=== PATIENT | male | born 1950 | race American Indian/Alaskan Native ===

== ENCOUNTER 2021-10-09 14:44 | Emergency (ER) | payer OTHER, MEDICARE ==
[~2021-10-09] VITALS: Ht 170.2 cm; Wt 121.8 kg
[~2021-10-09 14:44] MED LIST: ALLO300T2 PO; ALOG25TA PO; ASCO-134 PO; ATOR20TA66 PO; DICL20GE PO; FLO0.4C PO; HYDR-3965 PO; IPRA3AMP31 IH; LOSA25TA41 PO; PANT40TA54 PO
[2021-10-09 16:18] LABS: BASOPHILS # (AUTO) 0.1 X10'3 (0-0.2); BASOPHILS % (AUTO) 1.3 % (0-1); EOSINOPHILS # (AUTO) 0.4 X10'3 (0-0.9); EOSINOPHILS % (AUTO) 7.3 % (0-6); HEMOGLOBIN 14.3 g/dl (14.0-17.9); LYMPHOCYTES # (AUTO) 1.2 X10'3 (1.1-4.8); LYMPHOCYTES % (AUTO) 20.9 % (21-51); MEAN CORPUSCULAR HEMOGLOBIN 30.6 PG (27.0-31.0); MEAN CORPUSCULAR HGB CONC 32.4 g/dL (33.0-36.5); MEAN CORPUSCULAR VOLUME 94.5 FL (78-98); MEAN PLATELET VOLUME 9.4 FL (7.4-10.4); MONOCYTES # (AUTO) 0.5 X10'3 (0-0.9); MONOCYTES % (AUTO) 8.8 % (2-12); NEUTROPHILS # (AUTO) 3.6 X10'3 (1.8-7.7); NEUTROPHILS % (AUTO) 61.7 % (42-75); PLATELET COUNT 242 X10'3 (140-440); RED BLOOD COUNT 4.65 X10'6 (4.70-6.10); RED CELL DISTRIBUTION WIDTH 15.8 % (11.5-14.5); WHITE BLOOD COUNT 5.8 X10'3 (4.5-11.0)
[2021-10-09 16:31] LABS: ALANINE AMINOTRANSFERASE 26 U/L (12-78); ALBUMIN 3.5 G/DL (3.4-5.0); ALBUMIN/GLOBULIN RATIO 0.9 (1.1-1.5); ALKALINE PHOSPHATASE 76 IU/L (46-116); ANION GAP 9 (8-16); ASPARTATE AMINO TRANSFERASE 20 U/L (10-37); BILIRUBIN,TOTAL 0.8 MG/DL (0.1-1.0); BLOOD UREA NITROGEN 15 MG/DL (7-18); BUN/CREATININE RATIO 10.6 (5.4-32.0); CHLORIDE 104 MMOL/L (99-107); CREATININE 1.42 MG/DL (0.60-1.10); GLUCOSE 115 MG/DL (70-104); LIPASE 106 U/L (73-393); SODIUM 143 MMOL/L (135-145); TOTAL CARBON DIOXIDE 30.2 MMOL/L (24-32); TOTAL PROTEIN 7.5 G/DL (6.4-8.2); eGFR 49 ML/MIN
[2021-10-09 16:41] LABS: CALCIUM 9.3 MG/DL (8.5-10.1)
[2021-10-09 20:01] LABS: CLARITY,URINE CLEAR (Clear); COLOR,URINE YELLOW (Yellow); GLUCOSE, URINE NEGATIVE (Neg); KETONES,URINE NEGATIVE (Neg); LEUKOCYTE ESTERASE ,URINE NEGATIVE (Neg); NITRITES, URINE NEGATIVE (Neg); OCCULT BLOOD,URINE NEGATIVE (Neg); PH,URINE 5.5 (4.8-8.0); PROTEIN,URINE NEGATIVE (Neg)
[2021-10-09 20:19] LABS: UA COLLECTION TYPE VOIDED
[2021-10-09] MEDS ORDERED: iohexol 300mg/ml 100ml inj. ONE (20:56)
--- NOTE | 2021-10-09 20:58 | NUR ---
PATIENT TO CT
[2021-10-09 23:44] VITALS: BP 138/73
== END 2021-10-09 23:54 | disposition home or self-care (01) ==
LOC: ER 14:45
DX: R10.10 Upper abdominal pain, unspecified (principal); R10.33 Periumbilical pain; R11.2 Nausea with vomiting, unspecified; K59.00 Constipation, unspecified; E78.00 Pure hypercholesterolemia, unspecified; I10 Essential (primary) hypertension; E11.9 Type 2 diabetes mellitus without complications; G89.29 Other chronic pain; Z91.040 Latex allergy status; Z79.899 Other long term (current) drug therapy
CPT/HCPCS: 36415; 74177; 80053; 81003; 83690; 85025; 93005; 99285; Q9967

== ENCOUNTER 2025-05-06 23:45 | Inpatient (IN) | payer OTHER, MEDICARE ==
[~2025-05-06] VITALS: Ht 167.6 cm; Wt 90.0 kg
[~2025-05-06 23:45] MED LIST changes: -FLO0.4C PO; +TAMS-55 PO
--- NOTE | 2025-05-07 01:02 | RADIOLOGY REPORT ---
CHEST RADIOGRAPH Indication: possible sepsis Technique: Single frontal view of the chest was obtained COMPARISON: None FINDINGS: Lines and Tubes: None. Left anterior chest wall cardiac pacing device. Lungs: Clear Pleura: No effusion. No pneumothorax. Cardiomediastinal contours: Unremarkable Bones: Unremarkable IMPRESSION: 1. No radiographic evidence of acute cardiopulmonary abnormality.
[2025-05-07 01:37] LABS: MEAN PLATELET VOLUME 7.7 FL (7.4-10.4); RED CELL DISTRIBUTION WIDTH 18.3 % (11.5-14.5)
[2025-05-07 01:44] LABS: CREATININE 1.09 MG/DL (0.60-1.10); TOTAL CARBON DIOXIDE 33.3 MMOL/L (24-32); eCRCL 52 ML/MIN; eGFR 66 ML/MIN
--- NOTE | 2025-05-07 02:49 | Physician Documentation ---
History of Present Illness ~ Chief Complaint: Confused Stated Complaint: ALOC A ALS Time Seen by MD: 02:48 Primary Medical Doctor: MAGDA Mode of Arrival: EMS HPI Patient presents to the emergency room from home with confusion. History is limited secondary to patient's clinical condition Medication Reconciliation Allergies: Coded Allergies: kiwi (Verified Allergy, Unknown, 05/07/25) latex (Unverified Allergy, Unknown, 10/09/21) milk (Verified Allergy, Unknown, 05/07/25) Uncoded Allergies: PENICILLIN (Allergy, Mild, RASH, 08/31/21) AVOCADOS (Allergy, Unknown, 05/07/25) WALNUTS (Allergy, Unknown, 05/07/25) Scheduled Allopurinol (Allopurinol), 1.5 TAB PO DAILY, (Reported) Alogliptin Benzoate (Nesina), 1 TAB PO DAILY, (Reported) Ascorbic Acid (Ascorbic Acid), 1 TAB PO DAILY, (Reported) Atorvastatin Calcium (Atorvastatin Calcium), 1 TAB PO DAILY, (Reported) Diclofenac Sodium (Voltaren Arthritis Pain), 2 GM PO QID, (Reported) Diltiazem HCl (Diltiazem 24Hr Cd), 1 CAP PO DAILY, (Reported) Irbesartan* (Avapro*), 1 TAB PO DAILY, (Reported) Levothyroxine Sodium* (Synthroid*), 1 TAB PO DAILY, (Reported) Losartan Potassium (Losartan Potassium), 1 TAB PO DAILY, (Reported) Meloxicam (Meloxicam), 1 TAB PO DAILY, (Reported) Omeprazole (Prilosec), 1 CAP PO DAILY, (Reported) Pantoprazole Sodium (Pantoprazole Sodium), 1 TAB PO DAILY, (Reported) Polyethylene Glycol 3350* (Miralax*), 1 PKT PO DAILY, (Reported) Tamsulosin Hcl* (Flomax*), 1 CAP PO DAILY, (Reported) Scheduled PRN Hydrocodone Bit/Acetaminophen 5/325 MG ([place] 5/325 MG), 1 TABLET PO BID PRN for pain, (Reported) Ipratropium/Albuterol Sulfate (Duoneb 2.5-0.5 Mg/3 Ml Soln), 3 ML IH QID PRN for SOB or wheezing, (Reported) albuterol inhaler (Pro-Air Inhaler), 2 PUFFS INH Q4HPRN PRN for wheezing, (Reported) Miscellaneous Medications Cholecalciferol (Vitamin D3) (D3-5000), (Reported) Empagliflozin (Jardiance), (Reported) Guaifenesin (Guaifenesin), 400 MG PO, (Reported) Lisinopril (Lisinopril), (Reported) Metformin Hcl (Metformin Hcl Er), (Reported) Past Medical History Past Medical History: High Cholesterol, Hypertension, Diabetes, Chronic Back Pain Alcohol Use: None Drug Use: none Lives with: Family Lives In: Home Review of Systems ROS Review of systems limited secondary to patient's clinical condition Physical Exam Vital Signs: Temperature: 100.4, Source: Oral, Heart Rate: 76, Respiratory Rate: 17, BP: 123/73, Pulse Oximetry: 95, Weight: 90.000 Physical Exam General: Patient is sleeping, arousable to painful stimuli but just goes back to sleep Head: Normocephalic and atraumatic. Eyes: Conjunctival normal. EOMI. PERRL. ENT: Mucous membranes moist. Neck: Supple, trachea is midline. Chest: Clear to auscultation bilaterally without rales, rhonchi, or wheezes. There is no accessory muscle use or retractions. Cardiac: RRR without murmurs, gallops, or rubs. Abd: Soft, nondistended, nontender, with normoactive bowel sounds. No guarding, rebound, or rigidity. Extremities: Normal strength. Normal range of motion. No deformities or edema. Progress Progress Note Upon re-evaluation patient is much more spry, evening smiling Results/Orders Results/Orders Orders - YONNY STRAUSS MD Culture Blood (05/07/25 00:39) Chest,Single View (05/07/25 00:53) Monitor (05/07/25 00:39) Oxygen (05/07/25 00:39) Saline Lock (05/07/25 00:39) Straight Cath For Urine Sample (05/07/25 00:39) Covid19 Binax Poc Result Entry (05/07/25 02:52) Ct Head (05/07/25 02:53) Ct Abdomen Pelvis (05/07/25 02:53) Page Hospitalist (05/07/25 04:59) Fill Out Med Reconciliation (05/07/25 04:59) Completed Orders - YONNY STRAUSS MD Cbc/Diff (05/07/25 00:39) Chest,Single View (05/07/25 00:53) Procalcitonin (05/07/25 00:39) BMP (05/07/25 00:39) Lacticsepsis (05/07/25 00:39) Normal Saline 1000ml (0.9% Sodium Chlori (05/07/25 02:55) Ceftriaxone 2gm/D5w 50ml Bag (Rocephin 2 (05/07/25 02:55) Ct Head (05/07/25 02:53) Ct Abdomen Pelvis (05/07/25 02:53) Iohexol 300mg/Ml 100ml Inj. (Omnipaque-3 (05/07/25 03:02) CMP (05/07/25 04:25) Ammonia (05/07/25 04:25) Ua W/Microscopic, Cult If Ind (05/07/25 04:22) Medications Received in ER Medications (Trade) Dose Ordered Sig/Sarbjit Route PRN Reason Start Time Stop Time Status Last Admin Dose Admin Sodium Chloride 1,000 ml @ 1,000 mls/hr ONCE ONCE IV 05/07/25 02:55 05/07/25 03:54 DC 05/07/25 05:15 1,000 MLS/HR Ceftriaxone Sodium/Dextrose 50 ml @ 100 mls/hr ONCE ONCE IV 05/07/25 02:55 05/07/25 03:24 DC 05/07/25 05:15 100 MLS/HR Vital Signs 05/06/25 05/06/25 05/07/25 05/07/25 23:51 23:58 01:12 01:58 Temp 100.4 100.4 Pulse 78 74 75 76 Resp 16 18 19 17 B/P (MAP) 132/72 132/72 (92) 149/72 (97) 123/73 (90) Pulse Ox 100 96 100 95 05/07/25 05/07/25 05/07/25 04:25 04:30 04:33 Temp 97.8 Pulse 57 58 Resp 19 19 B/P (MAP) 142/74 (96) 142/74 (96) Pulse Ox 95 92 O2 Flow Rate 2.0 Laboratory Tests Test 05/07/25 01:04 05/07/25 04:22 05/07/25 04:54 05/07/25 04:57 White Blood Count 7.0 Red Blood Count 3.53 L Hemoglobin 10.1 L Hematocrit 30.9 L Mean Corpuscular Volume 87.7 Mean Corpuscular Hemoglobin 28.8 Mean Corpuscular Hemoglobin Concent 32.8 L Red Cell Distribution Width 18.3 H Platelet Count 364 Mean Platelet Volume 7.7 Neutrophils (%) (Auto) 73.4 Lymphocytes (%) (Auto) 13.8 L Monocytes (%) (Auto) 9.4 Eosinophils (%) (Auto) 2.8 Basophils (%) (Auto) 0.6 Neutrophils # (Auto) 5.1 Lymphocytes # (Auto) 1.0 L Monocytes # (Auto) 0.7 Eosinophils # (Auto) 0.2 Basophils # (Auto) 0.0 CBC Comment Sodium Level 138 136 Potassium Level 3.8 4.0 Chloride Level 102 100 Carbon Dioxide Level 33.3 H 34.1 H Anion Gap 3 L 2 L Blood Urea Nitrogen 17 17 Creatinine 1.09 1.16 H Estimated GFR/1.73 m2 66 61 BUN/Creatinine Ratio 15.6 14.7 Glucose Level 107 H 105 H Lactic Acid Level 0.6 Calcium Level 8.8 9.5 Albumin 2.0 L 2.2 L Procalcitonin < 0.05 Chemistry Comments Urine Specimen Description Cln catch midstream Urine Color Yellow Urine Clarity Clear Urine pH 5.5 Urine Specific [place] 1.020 Urine Protein Negative Urine Glucose (UA) >=1000 H Urine Ketones Trace H Urine Occult Blood Negative Urine Nitrite Negative Urine Bilirubin Small Urine Urobilinogen 0.2 Urine Leukocyte Esterase Negative Urine RBC 0-2 Urine WBC 0-4 Urine Squamous Epithelial Cells None seen Urine Bacteria Few Urine Hyaline Casts 0-3 Urine Culture Indicated Not ind Volume Urine Centrifuged 10 ml Urine Comment SARS-CoV-2 Antigen (Rapid) Negative Total Bilirubin 0.6 Aspartate Amino Transf (AST/SGOT) 18 Alanine Aminotransferase (ALT/SGPT) 9 L Alkaline Phosphatase 101 Ammonia < 10 L Total Protein 7.1 Globulin 4.9 H Albumin/Globulin Ratio 0.4 L Microbiology Date/Time Source Procedure Growth Status 05/07/25 01:14 Blood Hand Right Blood Culture - Preliminary NEGATIVE (LESS THAN 24 HOURS) Resulted Medical Decision Making Additional information obtaine: old records Findings Patient presents to the emergency room altered with fever. Differentials include but are not limited to urinary tract infection, metabolic encephalopathy, medication reaction, meningitis, stroke therefore emergent labs and imaging indicated. Labs reassuring for no elevation of white blood cell count or procalcitonin. Urinalysis is negative. Labs reassuring. Unknown cause for patient's altered mental status. We will admit for further investigation. Differential Dx:Considerations: Include: DKA Departure Admitted to Inpatient Unit: yes, to hospitalist Impression: Primary Impression: Acute confusion Additional Impression: Fever Condition: Guarded Referrals: NO PRIMARY CARE PROVIDER (PCP) Signature Scribe Signature: No scribe Attestation: The note accurately reflects work and decisions made by me.Yonny Strauss MD 05/07/25 06:02 YONNY STRAUSS MD May 07, 2025 02:49
[2025-05-07] MEDS ORDERED: iohexol 300mg/ml 100ml inj. ONE (03:02)
--- NOTE | 2025-05-07 04:12 | RADIOLOGY REPORT ---
EXAM: CT CT HEAD INDICATION: ams TECHNIQUE: CT of the head without intravenous contrast. Coronal and sagittal reformatted images are submitted. Radiation Dose : 1. Head: CT Dose: CTDI volume is 33.8 mGy. Dose-length product is 755 mGy*cm The dose indicators for CT are the volume Computed Tomography (CT) Dose Index (CTDIvol) and the Dose Length Product (DLP), and are measured in units of mGy and mGy-cm, respectively. These indicators are not patient dose, but values generated from the CT scanner acquisition factors. The report includes radiation exposure data for exposures received during this examination. All CT scans at this medical facility are performed using dose modulation techniques as appropriate to a performed exam including the following: Automated exposure control was utilized; adjustment of the MA and/or KV according to patient size; and use of iterative reconstruction technique. COMPARISON: None FINDINGS: There is no evidence of acute intracranial hemorrhage, extra-axial collection, mass effect, midline shift, herniation or hydrocephalus. The ventricles, sulci and cisterns are age appropriate. The guo-white differentiation is intact. The mastoid air cells are clear. There is mucosal thickening in the left maxillary sinus. No depressed calvarial fracture. The surrounding soft tissues are unremarkable. IMPRESSION: 1. No evidence of acute intracranial abnormality.
--- NOTE | 2025-05-07 04:21 | RADIOLOGY REPORT ---
Exam: CT CT ABDOMEN PELVIS W/ IV CONTRAST History: ams Comparison Study: CT ABDOMEN PELVIS on DOS: 10/09/21 Contrast: Type of contrast: Omnipaque 300 Contrast injected: 100 mL Contrast wasted: 0 TECHNIQUE: CT of the abdomen pelvis was performed with intravenous contrast. Coronal and sagittal reformatted images are submitted. Radiation Dose Information: CT Dose: CTDI volume is 27.8 mGy. Dose-length product is 1626.4 mGy*cm FINDINGS: Lung Bases: No acute or significant lung base finding. Normal heart size. No pleural or pericardial effusion. Liver: The liver is normal in size. No focal lesions. Normal hepatic vascular enhancement. Gallbladder and Biliary Tree: Gallbladder is unremarkable. No biliary ductal dilatation. Spleen: There is a 1.6 cm low-density lesion in the spleen compatible with a cyst. No splenomegaly. Pancreas: The pancreas is normal in appearance without focal lesions or abnormal enhancement. Adrenal Glands: Unremarkable Kidneys: Kidneys demonstrate normal symmetric enhancement. There is an 8 mm nonobstructive left renal calculus. There are bilateral renal cysts. Bladder: Unremarkable Bowel: The stomach is grossly normal in appearance. The small bowel is normal in caliber. Scattered stool throughout the colon. The appendix is not visualized; however, no secondary findings of acute appendicitis identified. Peritoneum: No pneumoperitoneum. No ascites. Lymphadenopathy: No mesenteric, retroperitoneal or periportal lymphadenopathy. Abdominal Wall and Mesentery: Unremarkable. Vasculature: Atherosclerotic calcifications are present in the distal abdominal aorta and the main branches. Mild stenosis of the superior mesenteric artery proximally due to atherosclerotic calcification. There is noncalcified plaque at the right iliac bifurcation. Right common iliac artery aneurysm is present measuring 2.3 cm. Left common iliac artery aneurysm present measuring 1.8 cm. Diffuse calcification noted throughout the bilateral internal and external iliac arteries. Pelvic Organs: Unremarkable Musculoskeletal: No aggressive focal bony lesions, acute fractures or dislocation. There is an old right 9th and 10th rib fractures. Multilevel lumbar spondylosis. There are postsurgical changes in the right femur. Multilevel lumbar spondylosis. Soft tissues: Unremarkable. IMPRESSION: 1. No acute intra-abdominal or intrapelvic process. 2. Nonobstructive left renal calculus measuring 8 mm. 3. Bilateral common iliac artery aneurysms measuring up to 2.3 cm on the right and 1.8 cm on the left. 4. Constipation.
[2025-05-07 04:40] LABS: LEUKOCYTE ESTERASE ,URINE NEGATIVE (Neg); NITRITES, URINE NEGATIVE (Neg); OCCULT BLOOD,URINE NEGATIVE (Neg)
[2025-05-07 04:41] LABS: UA COLLECTION TYPE CLN CATCH MIDSTREAM
[2025-05-07 04:51] LABS: HYALINE CASTS 0-3 /LPF (NEGATIVE); SQUAMOUS EPITHELIAL CELL,UR NONE SEEN /LPF (FEW)
[2025-05-07] MEDS: normal saline 1000ml 1,000 ML IV ONE (05:15)
[2025-05-07] MEDS: CefTRIAXone 2gm/D5W 50ml BAG 50 ML IV ONE (05:15)
[2025-05-07 05:26] LABS: CREATININE 1.16 MG/DL (0.60-1.10); TOTAL CARBON DIOXIDE 34.1 MMOL/L (24-32); eCRCL 49 ML/MIN; eGFR 61 ML/MIN
[2025-05-07] MEDS ORDERED: METF-504 (05:28)
[2025-05-07] MEDS ORDERED: LISI30TA4 (05:28)
[2025-05-07] MEDS ORDERED: EMPA10TA (05:29)
[2025-05-07] MEDS ORDERED: MELO-102 PO (05:51)
[2025-05-07] MEDS ORDERED: CHOL125C7 (05:51)
[2025-05-07] MEDS ORDERED: POLY17PO10 PO (05:51)
[2025-05-07] MEDS ORDERED: SYN0.088T PO (05:51)
[2025-05-07] MEDS ORDERED: DILT-36 PO (05:51)
[2025-05-07] MEDS ORDERED: ALBU8HFA INH (05:51)
[2025-05-07] MEDS ORDERED: GUAI400T92 PO (05:51)
[2025-05-07] MEDS ORDERED: OMEP40CA21 PO (05:51)
[2025-05-07] MEDS ORDERED: IRBE150T51 PO (05:51)
--- NOTE | 2025-05-07 05:56 | HISTORY AND PHYSICAL-Residence ---
History & Physical Providers to CC Resident Creating Document: ESVIN MONTANEZ, RES ~ History of Present Illness Primary Medical Doctor: MAGDA Reason for Admit\Complaint: Encephalopathy History of Present Illness This is a 74-year-old male with a history of type 2 diabetes mellitus, hypertension, hypothyroidism, on 2 L of oxygen at home, possible stroke was brought to the ER by the EMS for increased confusion. Patient is awake, alert, oriented to self, place but not to time. On asking why he was in the hospital, he replied he came for blood transfusion. Patient is able to answer few questions regarding his medical history. He denied any fever, chest pain, palpitations, shortness of breadth, burning sensation in the urine, nausea, vomiting, diarrhea. He denies any headache, changes in the vision. Reports no change in his medications. He lives with his sister and production artist. I tried contacting the production artist but she did not reply to the call. Allergies: Coded Allergies: kiwi (Verified Allergy, Unknown, 05/07/25) latex (Unverified Allergy, Unknown, 10/09/21) milk (Verified Allergy, Unknown, 05/07/25) Uncoded Allergies: PENICILLIN (Allergy, Mild, RASH, 08/31/21) AVOCADOS (Allergy, Unknown, 05/07/25) WALNUTS (Allergy, Unknown, 05/07/25) Home Medications Home Medications Active Reported Jardiance (Empagliflozin) 10 Mg Tablet Metformin Hcl Er (Metformin Hcl) 500 Mg Tab.er.24 Lisinopril 30 Mg Tablet Flomax* (Tamsulosin HCl) 0.4 Mg Cap.sr.24h 1 Cap PO DAILY Pantoprazole Sodium 40 Mg Tablet.dr 1 Tab PO DAILY Voltaren Arthritis Pain (Diclofenac Sodium) 20 Gm Gel..gram. 2 Gm PO QID Atorvastatin Calcium 20 Mg Tablet 1 Tab PO DAILY Ascorbic Acid 500 Mg Tablet 1 Tab PO DAILY Nesina (Alogliptin Benzoate) 25 Mg Tablet 1 Tab PO DAILY Allopurinol 300 Mg Tablet 1.5 Tab PO DAILY Duoneb 2.5-0.5 Mg/3 Ml Soln (Ipratropium/Albuterol Sulfate) 3 Ml Ampul.neb 3 Ml IH QID PRN Losartan Potassium 25 Mg Tablet 1 Tab PO DAILY [place] 5/325 MG (Acetaminophen/Hydrocodone Bitart) 5 Mg/325 Mg Tablet 1 Tablet PO BID PRN Past Medical History Past Medical History Type 2 diabetes mellitus Hypertension Hypothyroidism Chronic hypoxemic respiratory failure, on 2 L of oxygen at home ASHLEE, on CPAP at night Past Surgical History Surgical History Comment Bilateral knee surgeries. 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 Alcohol Use: None Drug Use: None Lives with: Family Lives In: Home ROS Constitutional: Reports: fever Eyes: Denies: no symptoms reported, see HPI, pain, discharge, blurred vision, double vision, itching, photophobia, redness, tearing, other ENT: Denies: no symptoms reported, see HPI, ear pain, ear bleeding, ear discharge, hearing loss, ear ringing, nose pain, nose bleeding, nose congestion, nose discharge, throat pain, throat swelling, voice change, mouth pain, mouth bleeding, mouth swelling, other Respiratory: Denies: no symptoms reported, see HPI, cough, orthopnea, shortness of breath, SOB with exertion, SOB at rest, stridor, wheezing, hemoptysis, pain with breathing, other Cardiovascular: Denies: no symptoms reported, see HPI, chest pain, left arm pain, diaphoresis, lightheadedness, syncope, edema, palpitations, irregular heart rate, other Gastrointestinal: Denies: no symptoms reported, see HPI, abdomen distended, abdominal pain, nausea, vomiting, diarrhea, constipated, melena, hematemesis, hematochezia, rectal bleeding, rectal pain, dysphagia, poor appetite, poor fluid intake, other Genitourinary: Denies: no symptoms reported, see HPI, burning, discharge, dysuria, frequency, flank pain, hematuria, incontinence, pain, decreased urine output, urgency, other Male Genitalia: Denies: no symptoms reported, see HPI, penile discharge, penile sore, testicular pain, testicular swelling, other Neurological: Denies: no symptoms reported, see HPI, speech problem, headache, dizziness, fainting, tingling, left sided numbness, right sided numbness, left sided weakness, right sided weakness, problems walking, unable to move lower ext, unable to move upper ext, petit mal seizures, tonic-clonic seizures, cognitive dysfunction, other Musculoskeletal: Denies: no symptoms reported, see HPI, pain, swelling, back pain, gout, joint pain, joint swelling, muscle pain, muscle swelling, muscle stiffness, neck pain, other Exam Vitals: Vital Signs Date Time Temp Pulse Resp B/P (MAP) Pulse Ox O2 Delivery O2 Flow Rate FiO2 05/07/25 04:33 97.8 58 19 142/74 (96) 92 05/07/25 04:30 2.0 General: General: Awake, alert, oriented Head: Normocephalic with an atraumatic Eyes: Pupils- 3mm, reacting to light, conjunctiva- slightly pale, nonicteric Nose and throat: No polyps, septum- normal, no mucosal ulcers Neck: Supple, no lymphadenopathy, no carotid bruit Respiratory: no use of accessory muscles of respiration, Bilateral normal vesiscular breath sounds heard. No wheezing, no crackles heard Cardiac: regular, no murmurs, no rubs Abdomen: Soft, no tenderness, no guarding, no rigidity, normal bowel sounds Extremities: no clubbing, 1+ edema, no deformities, peripheral pulses- 2+ Skin: warm and dry, no rash, Neuro Awake, alert, oriented to self and place but not to time Cranial nerves-normal vision, extraocular movements-left lateral rectus palsy(chronic), other extraocular movements normal, normal sensation of the face, normal facial movements, decreased hearing likely secondary to age, villi in the center, tongue deviated to left, shrugging of shoulders normal Motor-strength in bilateral upper and lower extremity 5/5, normal tone and bulk, no pronator drift Reflexes-biceps, triceps, brachioradialis, knee normal, Babinski negative [id number] test normal, no tremor Gait-not examined Diagnostic Data Last Recorded Lab Results: 05/07/25 0104 05/07/25 0457 Advance Care Planning Advanced Care plannin - 30 Minutes (I spent 17 minutes in discussing various resuscitative measures, the patient chose to be full code) Additional Plan Assessment This is a 74-year-old male with a history of type 2 diabetes mellitus, hypertension, hypothyroidism, on 2 L of oxygen at home, possible stroke was brought to the ER by the EMS for increased confusion. The patient is being admitted for further evaluation of encephalopathy Plan Encephalopathy Metabolic vs septic vs toxic. Awake, alert, orientedx2 Patient is febrile, WBC count, procalcitonin normal. COVID-19 pending Urine analysis negative for infection. Blood cultures pending Chest x-ray normal, Abdominal CT with IV contrast done in the ER look for infection, showed constipation. Head CT showed no acute intracranial abnormal Ammonia levels normal TSH ordered Started on ceftriaxone as the patient is febrile. NPO until swallow evaluation. Neuro checks q.4. n. 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 Telemetry monitoring Started on aspirin and atorvastati Normocytic Anemia Patient denied any melena Hemoglobin 10.1 Iron panel ordered Stool occult blood ordered. Chronic hypoxemic respiratory failure Possible ASHLEE Patient is on 2 L of oxygen at baseline Patient's CC uses CPAP at home, please verify Venous blood gas ordered Iliac artery aneurysm Abdominal CT with IV contrast showed bilateral common iliac artery aneurysms, 2.3 cm on right, 1.8 cm on left Constipation Patient does not remember the last bowel movement Abdominal CT showed constipation On docusate 100 mg b.i.d. Hypertension Continued patient's home medication Cardizem 180 mg. Type 2 diabetes mellitus A1c ordered Started on low-dose insulin supplement protocol Hypothyroidism Continued patient's home medication levothyroxine History of gout Continued patient's home medication allopurinol. Code status: Full code DVT prophylaxis: Heparin Diet: NPO until swallow evaluation Esvin Montanez M.D PGY2 Plan reviewed with bedside team. Patient seen through remote audiovisual assessment through HIPAA compliant setup. All labs, flowsheets, and images reviewed Cumulative nonprocedural care time spent in directed patient care = 30 min Date of Service: May 07, 2025 Billing Provider: KINDRA VALADEZ MD, PRAVAHIKA, RES May 07, 2025 05:56 KINDRA VALAEDZ MD May 07, 2025 07:15
[2025-05-07] MEDS ORDERED: ondansetron/PF 4mg/2ml inj IV PRN (06:15)
[2025-05-07] MEDS ORDERED: mag hydrox/Alum hydrox/simeth 30ml oral suspension PO PRN (06:15)
[2025-05-07] MEDS ORDERED: magnesium sulf-water 4G/100mL 100 ML IV PRN (06:15)
[2025-05-07] MEDS ORDERED: magnesium hydroxide 30ml (MOM) UD suspension PO PRN (06:15)
[2025-05-07] MEDS ORDERED: magnesium Cl slow-release 64mg tablet PO PRN (06:15)
[2025-05-07] MEDS ORDERED: potassium Cl 40MEQ/1/2NS 520ml 520 ML IV PRN (06:15)
[2025-05-07] MEDS ORDERED: magnesium sulf-water 2g/50mL 50 ML IV PRN (06:15)
[2025-05-07] MEDS ORDERED: potassium Cl 20 mEq SR tablet PO PRN ×2 (06:15)
[2025-05-07] MEDS ORDERED: dextrose 50%-water 50ml dispensing syringe IV PRN (06:25)
[2025-05-07] MEDS ORDERED: glucagon, human recombinant 1mg kit SUBCUT PRN (06:25)
[2025-05-07] MEDS ORDERED: DEXTROSE 15 GM of carb/4 tabs (each vial/BOTTLE has 4 tablets) PO PRN (06:25)
[2025-05-07] MEDS: INSULIN LISPRO 100 UNIT/ML INSULN.PEN MULTI-DOSE SQ SCH (07:00)
[2025-05-07 07:26] LABS: PRO BRAIN NATRIURETIC PEPTIDE 463 PG/ML (0-450)
[2025-05-07 07:54] VITALS: BP 172/74; PULSE 64; RESP 20; TEMP 98; O2SAT 96
[2025-05-07] MEDS: K and/or MAG REPLACEMENT MC SCH (08:00)
[2025-05-07] MEDS: normal saline 1000ml 1,000 ML IV SCH (08:01)
[2025-05-07] MEDS: CefTRIAXone/D5W-Rocephin 1gm 50 ML IV SCH (08:01)
[2025-05-07] MEDS: aspirin 81mg, enteric-coated 1 TAB TABLET.DR PO SCH (08:02)
[2025-05-07] MEDS: docusate sod 100mg capsule PO SCH (08:03)
[2025-05-07] MEDS: heparin, porcine 5000 units/ml vial SQ SCH (08:04)
[2025-05-07] MEDS: diltiazem CD 180mg cap (once-daily) PO SCH (08:05)
[2025-05-07 09:33] LABS: % IRON SATURATION 7 % (11-46)
[2025-05-07 10:00] VITALS: BP 165/72; PULSE 63; RESP 16; TEMP 98.4; O2SAT 96
[2025-05-07] MEDS: magnesium citrate 296ml oral solution PO ONE (13:47)
--- NOTE | 2025-05-07 15:27 | CONSULTATION REPORT ---
History of Present Illness Providers to CC ~ Reason for Admit\Admit Dx: Encephalopathy Refering MD: MAGDA Allergies: Coded Allergies: kiwi (Verified Allergy, Unknown, 05/07/25) latex (Unverified Allergy, Unknown, 10/09/21) milk (Verified Allergy, Unknown, 05/07/25) Uncoded Allergies: PENICILLIN (Allergy, Mild, RASH, 08/31/21) AVOCADOS (Allergy, Unknown, 05/07/25) WALNUTS (Allergy, Unknown, 05/07/25) Home Medications Home Medications Active Reported Miralax* (Polyethylene Glycol) 1 Packet Packet 1 Pkt PO DAILY dissolve in water Prilosec (Omeprazole) 40 Mg Capsule 1 Cap PO DAILY 30 Days Meloxicam 15 Mg Tablet 1 Tab PO DAILY 30 Days Synthroid* (Levothyroxine Sodium) 88 Mcg Tablet 1 Tab PO DAILY 30 Days Avapro* (Irbesartan) 150 Mg Tablet 1 Tab PO DAILY 30 Days Guaifenesin 400 Mg Tablet 400 Mg PO Pro-Air Inhaler (Albuterol) 8.5 Gm Inhaler 2 Puffs INH Q4HPRN PRN 30 Days D3-5000 (Cholecalciferol (Vitamin D3)) 125 Mcg (5000 Unit) Capsule Diltiazem 24Hr Cd (Diltiazem HCl) 180 Mg Cap.er.24h 1 Cap PO DAILY 30 Days Jardiance (Empagliflozin) 10 Mg Tablet Metformin Hcl Er (Metformin Hcl) 500 Mg Tab.er.24 Lisinopril 30 Mg Tablet Flomax* (Tamsulosin HCl) 0.4 Mg Cap.sr.24h 1 Cap PO DAILY Pantoprazole Sodium 40 Mg Tablet.dr 1 Tab PO DAILY Voltaren Arthritis Pain (Diclofenac Sodium) 20 Gm Gel..gram. 2 Gm PO QID Atorvastatin Calcium 20 Mg Tablet 1 Tab PO DAILY Ascorbic Acid 500 Mg Tablet 1 Tab PO DAILY Nesina (Alogliptin Benzoate) 25 Mg Tablet 1 Tab PO DAILY Allopurinol 300 Mg Tablet 1.5 Tab PO DAILY Duoneb 2.5-0.5 Mg/3 Ml Soln (Ipratropium/Albuterol Sulfate) 3 Ml Ampul.neb 3 Ml IH QID PRN Losartan Potassium 25 Mg Tablet 1 Tab PO DAILY Temple 5/325 MG (Acetaminophen/Hydrocodone Bitart) 5 Mg/325 Mg Tablet 1 Tablet PO BID PRN Physical Exam Last Vital Signs Recorded: Temperature: 98.4, Source: Oral, Heart Rate: 63, Respiratory Rate: 16, BP: 165/72, Pulse Oximetry: 96, Weight: 90.000 Results Diagram Lab Result Diagram: 05/07/25 0104 05/07/25 0457 Assessment/Plan Additional Plan [place] Neuro Note # Demographics Consult Type: General Neurology Patient Location: Inpatient First Name: Boyd Milan Last Name: Vee Date of : 1950 Age: 74 Gender: Male Facility: [facility] Time of Initial Page (): 05/07/2025 14:56 First Contact with Site (): 05/07/2025 14:56 # HPI Chief Complaint: - confusion History: 74 y/o M admitted this morning with confusion for three days. On review of admission H and P, neurology consulted for tongue deviation of uncertain duration. Patient reports he doesn't know why he is in the hospital. When asked about confusion he states he was confused the other day. When asked what month it is he states he lost some awareness. Does have neck pain. # Scores Time of exam and NIHSS (): 05/07/2025 15:19 Level of Consciousness 1a: [0] = Alert; keenly responsive LOC Questions 1b: [1] = Answers one correctly LOC Commands 1c: [0] = Performs both tasks correctly Best Gaze 2: [1] = Partial gaze palsy Visual 3: [0] = No visual loss Facial Palsy 4: [0] = Normal symmetrical movements Motor Arm Left 5a: [0] = No drift Motor Arm Right 5b: [0] = No drift Motor Leg Left 6a: [0] = No drift Motor Leg Right 6b: [0] = No drift Limb Ataxia 7: [0] = Absent Sensory 8: [0] = Normal Best Language 9: [1] = Cxtd-pz-[id number] aphasia Dysarthria 10: [0] = Normal Extinction and Inattention 11: [0] = No abnormality NIHSS Total: 3 # Exam Additional Neurologic Exam: able to touch his chin to his chest # Data Head CT: - no bleed - per radiologist read # Assessment Impression: - Encephalopathy Favor encephalopathy which has many potential etiologies, though also a question of aphasia which raises question of stroke # Plan Thrombolytic/Intervention: NOT IV Thrombolysis or IA Intervention candidate Thrombolytic Exclusion: > 4.5 hours Intraarterial Exclusion: doubt LVO based on current exam. Symptoms >2 days Imaging: (urgency: routine): - MRI Brain without contrast Diagnostic Test: - EEG Other: - If patient has any neurological deterioration please call me back immediately Additional Recommendations: Infectious/metabolic per primary team. With good neck flexion okay to hold off on lumbar puncture currently but may need to reconsider depending on other test results and clinical course. # Logistics Attestation of consult completion: The patient is located at: [facility]. Facility staff participated in the visit. I performed this telemedicine visit from my offsite office utilizing interactive 2 way audio and visual telecommunication technology at the request of the onsite inpatient provider. Total time spent in telemedicine encounter: I spent 20 minutes reviewing clinical data and/or imaging, obtaining history, examining the patient, communicating with the onsite care team, and in preparation of this report. # Demographics First Name: Boyd Milan Last Name: Vee Facility: [facility] KINDRA STOUT MD May 07, 2025 15:27
[2025-05-07 18:30] VITALS: BP 157/68; PULSE 60; RESP 13; TEMP 97.2; O2SAT 91
[2025-05-07] MEDS: lactulose 20gm/30ml cup PO SCH (20:00)
[2025-05-07] MEDS: polyethylene glycol 3350 17gm powd pack PO SCH (20:45)
[2025-05-07] MEDS: DEXTROSE 15 GM of carb/4 tabs (each vial/BOTTLE has 4 tablets) PO PRN (20:46)
[2025-05-07] MEDS: haloperidol lactate 5mg/ml inj IM ONE (21:27)
[2025-05-07 22:00] VITALS: BP 148/72; PULSE 67; RESP 14; TEMP 98.4; O2SAT 97
[2025-05-07] MEDS: dextrose 50%-water 50ml dispensing syringe IV PRN (22:34)
[2025-05-08 06:00] VITALS: BP 160/66; PULSE 62; RESP 16; TEMP 98.2; O2SAT 97
[2025-05-08 06:11] LABS: MEAN PLATELET VOLUME 7.8 FL (7.4-10.4); RED CELL DISTRIBUTION WIDTH 18.1 % (11.5-14.5)
[2025-05-08 06:39] LABS: CHOL/HDL RATIO 2.5 (0.00-4.99); CREATININE 0.67 MG/DL (0.60-1.10); LDL CHOLESTEROL 56 MG/DL (50-100); TOTAL CARBON DIOXIDE 31.3 MMOL/L (24-32); eCRCL 85 ML/MIN; eGFR > 90 ML/MIN
[2025-05-08 10:00] VITALS: BP 137/64; PULSE 64; RESP 18; TEMP 98; O2SAT 94
[2025-05-08 16:52] VITALS: PULSE 84; RESP 17; O2SAT 92
--- NOTE | 2025-05-08 17:00 | PROGRESS NOTE ---
Daily Progress Note Providers to CC ~ no new complaint today, resting comfortably in the bed, somnolent Central Line/PICC still needed: No Head-Non Protocol Head Indications Met/Not Met: F/C Indications Not Met Antibiotic Timeout Antibiotic Ordered?: No MRSA Education MRSA Education Provided to pt: No Subjective As above Objective Vital Signs Date Time Temp Pulse Resp B/P (MAP) Pulse Ox O2 Delivery O2 Flow Rate FiO2 05/08/25 16:52 84 17 92 Room Air* 0 21 05/08/25 10:00 98.0 137/64 (88) Vital signs, stable ,afebrile. Pulse Oximetry reflects adequate oxygenation. General: well developed, well nourished. Awake , alert, and oriented x4, resting comfortably in the bed, in no acute distress . Skin: Warm, dry, no pallor, no rash or petechiae. HEENT: Atraumatic, normocephalic, EOMI, anicteric sclera B; pink conjunctiva; PERRLA, normal oropharynx, moist oral and nasal mucosa. Tympanic membrane , nose , throat clear. Neck: Trachea midline. Supple, full range of motion, no JVD, bruit , hepatojugular reflex , lymphadenopathy or masses, or other lesions Cardiac: Regular rhythm, regular rate no murmurs, rubs, or gallops. Normal S1 and S2, no S3 noticed. PMI is normal. Respiratory: Equal breath sounds bilaterally, no tachypnea; lungs clear to auscultation bilaterally, no wheezing ,rub or rales, or crackles. Chest wall is symmetric and without deformity. No signs of trauma. Chest wall is nontender. No signs of respiratory distress. Resonance is normal upon percussion bilaterally. Gastrointestinal: Abdomen symmetric, non-distended, soft, non-tender, normal bowel sounds x4 quadrant, normoactive, no hepatosplenomegaly , no masses , no bruit, no flank pain bilaterally. No voluntary guarding, rebound, or rigidity. No tenderness to percussion. No pulsatile masses. Equal femoral pulses. No Chavez's sign or McBurney point tenderness. Back; no CVA tenderness bilaterally, no deformities. Neck and back are without deformity as well. No tenderness noted on palpation of the spinous processes. Spinous processes are midline. Cervical, thoracic, and lumbar paraspinal muscles are not tender and are without spasm. : normal external genitalia, without lesions, swelling, masses or tenderness. Musculoskeletal: Extremities, normal range of motion, non-tender, muscle strength 5/5 x 4. Negative Homans signs bilaterally on lower extremity. Distal pulses full symmetrical, no clubbing, cyanosis , edema. Neurological: Speech is clear, alert, and oriented x 4. No motor or sensory deficit, deep tendon reflexes normal, cerebellar intact. Cranial nerves II-XII intact. Psych: Alert and or appropriate, normal affect. Vascular: Good distal pulses, which are equal x4; capillary refill less than 2 seconds. Lymphatic, no lymphadenopathy. Result Diagram: 05/08/2552905/08/25529 Problem\Assessment\Plan Assessment This is a 74-year-old male with a history of type 2 diabetes mellitus, hypertension, hypothyroidism, on 2 L of oxygen at home, possible stroke was brought to the ER by the EMS for increased confusion. The patient is being admitted for further evaluation of encephalopathy Plan Encephalopathy Neurology consult completed, recommendation to be implemented Metabolic vs septic vs toxic. Awake, alert, orientedx2 Patient is febrile, WBC count, procalcitonin normal. COVID-19 pending Urine analysis negative for infection. Blood cultures pending Chest x-ray normal, Abdominal CT with IV contrast done in the ER look for infection, showed constipation. Head CT showed no acute intracranial abnormal Ammonia levels normal TSH ordered Started on ceftriaxone as the patient is febrile. NPO until swallow evaluation. Neuro checks q.4. n. 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 Telemetry monitoring Started on aspirin and atorvastati Normocytic Anemia Patient denied any melena Hemoglobin 10.1 Iron panel ordered Stool occult blood ordered. Chronic hypoxemic respiratory failure Possible ASHLEE Patient is on 2 L of oxygen at baseline Patient's CC uses CPAP at home, please verify Venous blood gas ordered Iliac artery aneurysm Abdominal CT with IV contrast showed bilateral common iliac artery aneurysms, 2.3 cm on right, 1.8 cm on left Constipation Patient does not remember the last bowel movement Abdominal CT showed constipation On docusate 100 mg b.i.d. Hypertension Continued patient's home medication Cardizem 180 mg. Type 2 diabetes mellitus A1c ordered Started on low-dose insulin supplement protocol Hypothyroidism Continued patient's home medication levothyroxine History of gout Continued patient's home medication allopurinol. Code status: Full code DVT prophylaxis: Heparin Diet: NPO until swallow evaluation Sepsis Screening Reassessment Date: May 08, 2025 Date of Service: May 08, 2025 Billing Provider: LEON ALBARRAN MD Common Visit Codes: [id number] INP/OBS CARE(HIGH) LEON ALBARRAN MD May 08, 2025 17:00
[2025-05-08 18:30] VITALS: BP 154/75; PULSE 69; RESP 17; TEMP 97.7; O2SAT 93
[2025-05-08 22:00] VITALS: BP 147/64; PULSE 61; RESP 15; TEMP 98.2; O2SAT 92
[2025-05-09 05:44] LABS: MEAN PLATELET VOLUME 8.0 FL (7.4-10.4); RED CELL DISTRIBUTION WIDTH 18.2 % (11.5-14.5)
[2025-05-09 06:08] LABS: CREATININE 0.63 MG/DL (0.60-1.10); TOTAL CARBON DIOXIDE 34.8 MMOL/L (24-32); eCRCL 90 ML/MIN; eGFR > 90 ML/MIN
[2025-05-09 07:03] VITALS: BP 141/88; PULSE 62; RESP 15; TEMP 97.3; O2SAT 90
[2025-05-09 08:00] VITALS: RESP 16; O2SAT 90
[2025-05-09 10:00] VITALS: BP 151/76; PULSE 60; PULSE 66; RESP 12; TEMP 98.9; O2SAT 91
[2025-05-09 12:40] VITALS: BP 154/84; PULSE 64; PULSE 65; RESP 16; O2SAT 94
--- NOTE | 2025-05-09 16:28 | PROGRESS NOTE ---
Daily Progress Note Providers to CC Resting comfortably in the bed, somnolent ~ Central Line/PICC still needed: No Head-Non Protocol Head Indications Met/Not Met: F/C Indications Not Met Antibiotic Timeout Antibiotic Ordered?: Yes MRSA Education MRSA Education Provided to pt: Yes Subjective As above Objective Vital Signs Date Time Temp Pulse Resp B/P (MAP) Pulse Ox O2 Delivery O2 Flow Rate FiO2 05/09/25 15:33 Room Air 05/09/25 12:40 65 154/84 (107) 05/09/25 12:40 16 94 0 21 05/09/25 10:00 98.9 Vital signs, stable ,afebrile. Pulse Oximetry reflects adequate oxygenation. General: well developed, well nourished. Somnolent, resting comfortably in the bed, in no acute distress . Skin: Warm, dry, no pallor, no rash or petechiae. HEENT: Atraumatic, normocephalic, EOMI, anicteric sclera B; pink conjunctiva; PERRLA, normal oropharynx, moist oral and nasal mucosa. Tympanic membrane , nose , throat clear. Neck: Trachea midline. Supple, full range of motion, no JVD, bruit , hepatojugular reflex , lymphadenopathy or masses, or other lesions Cardiac: Regular rhythm, regular rate no murmurs, rubs, or gallops. Normal S1 and S2, no S3 noticed. PMI is normal. Respiratory: Equal breath sounds bilaterally, no tachypnea; lungs clear to auscultation bilaterally, no wheezing ,rub or rales, or crackles. Chest wall is symmetric and without deformity. No signs of trauma. Chest wall is nontender. No signs of respiratory distress. Resonance is normal upon percussion bilaterally. Gastrointestinal: Abdomen symmetric, non-distended, soft, non-tender, normal bowel sounds x4 quadrant, normoactive, no hepatosplenomegaly , no masses , no bruit, no flank pain bilaterally. No voluntary guarding, rebound, or rigidity. No tenderness to percussion. No pulsatile masses. Equal femoral pulses. No Chavez's sign or McBurney point tenderness. Back; no CVA tenderness bilaterally, no deformities. Neck and back are without deformity as well. No tenderness noted on palpation of the spinous processes. Spinous processes are midline. Cervical, thoracic, and lumbar paraspinal muscles are not tender and are without spasm. : normal external genitalia, without lesions, swelling, masses or tenderness. Musculoskeletal: Extremities, normal range of motion, non-tender, muscle strength 5/5 x 4. Negative Homans signs bilaterally on lower extremity. Distal pulses full symmetrical, no clubbing, cyanosis , edema. Neurological: Somnolent Vascular: Good distal pulses, which are equal x4; capillary refill less than 2 seconds. Lymphatic, no lymphadenopathy. Result Diagram: 05/09/259 05/09/259 Coagulation Studies Laboratory Tests Test 05/08/25 17:29 D-Dimer 1.79 MG/L FEU (0-0.50) H D-Dimer Comment Problem\Assessment\Plan Assessment This is a 74-year-old male with a history of type 2 diabetes mellitus, hypertension, hypothyroidism, on 2 L of oxygen at home, possible stroke was brought to the ER by the EMS for increased confusion. The patient is being admitted for further evaluation of encephalopathy Plan Encephalopathy Neurology consult completed, recommendation to be implemented MRI, of the head and electro encephalogram IV, pending Patient is febrile, WBC count, procalcitonin normal. COVID-19 pending Urine analysis negative for infection. Blood cultures pending Chest x-ray normal, Abdominal CT with IV contrast done in the ER look for infection, showed constipation. Head CT showed no acute intracranial abnormal Ammonia levels normal TSH ordered Started on ceftriaxone as the patient is febrile. NPO until swallow evaluation. Neuro checks q.4. n. 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 Telemetry monitoring Started on aspirin and atorvastati Normocytic Anemia Patient denied any melena Hemoglobin 10.1 Iron panel ordered Stool occult blood ordered. Chronic hypoxemic respiratory failure Possible ASHLEE Patient is on 2 L of oxygen at baseline Patient's CC uses CPAP at home, please verify Venous blood gas ordered Iliac artery aneurysm Abdominal CT with IV contrast showed bilateral common iliac artery aneurysms, 2.3 cm on right, 1.8 cm on left Constipation Patient does not remember the last bowel movement Abdominal CT showed constipation On docusate 100 mg b.i.d. Hypertension Continued patient's home medication Cardizem 180 mg. Type 2 diabetes mellitus A1c ordered Started on low-dose insulin supplement protocol Hypothyroidism Continued patient's home medication levothyroxine History of gout Continued patient's home medication allopurinol. Code status: Full code DVT prophylaxis: Heparin Diet: NPO until swallow evaluation Sepsis Screening Reassessment Date: May 09, 2025 Date of Service: May 09, 2025 Billing Provider: LEON ALBARRAN MD Common Visit Codes: [id number] INP/OBS CARE(HIGH) LEON ALBARRAN MD May 09, 2025 16:28
--- NOTE | 2025-05-09 17:40 | [facility] CONSULT REPORT ---
[facility] Procedure Note [facility] Procedure Note Consult [facility] Note # Demographics Type of EEG Read: - Routine EEG - video Patient Location: Inpatient First Name: Boyd Last Name: Vee Date of : 1950 Age: 74 Gender: Male Facility: [facility] Time of Initial Page (): 05/09/2025 09:33 First Contact with Site (): 05/09/2025 09:33 # EEG Interpretation Start Time of EEG Read (): 05/09/2025 10:04 Stop Time of EEG Read (): 05/09/2025 10:25 Duration: 0h 21m Technical Details: - The EEG electrodes were placed using the standard International 10-20 system of electrode placement. Video and an accessory EKG lead were used during the course of this study. - This study was recorded using the Pegg'd EEG software Indication: - altered mental status # Description Photic Stimulation: NOT Performed Hyperventilation: NOT performed Phases Captured: - awake Symmetry: symmetric Posterior Dominant Rhythm: The record is continuous, of normal amplitude and bilaterally symmetrical. There is a poorly sustained posterior dominant rhythm at 8-9 Hz. There is a moderate amount of diffuse low amplitude 15-25 Hz beta activity and an appropriate amount of 4-7 Hz theta activity during wakefulness. occasional <4 Hz delta activity is present during wakefulness. Amplitude: normal Reactivity: yes Variability: yes Continuity: continuous EKG: NSR # Abnormalities Epileptiform Abnormalities: - NOT present Focal Slowing: no Seizure: - NOT present No push button events # Impression Impression: abnormal 1. Diffuse Slowing # Clinical Correlation Clinical Correlation: 1. Diffuse slowing is non-specific and may be seen in the setting of diffuse cerebral dysfunction; such as toxic/metabolic/infectious encephalopathy or heavily sedating medication use. # Demographics First Name: Boyd Last Name: Vee Facility: [facility] Neuro Consult Order placed for: Yes KRISTIN CAVAZOS MD May 09, 2025 17:40
[2025-05-09 18:00] VITALS: BP 148/83; PULSE 61; RESP 14; TEMP 99.6; O2SAT 92
[2025-05-09 22:00] VITALS: BP 149/77; PULSE 62; RESP 14; TEMP 97.2; O2SAT 96
[2025-05-10 05:46] LABS: MEAN PLATELET VOLUME 8.3 FL (7.4-10.4); RED CELL DISTRIBUTION WIDTH 18.1 % (11.5-14.5)
[2025-05-10 06:00] VITALS: BP 153/99; PULSE 66; RESP 16; TEMP 97.6; O2SAT 95
[2025-05-10 06:19] LABS: CREATININE 0.61 MG/DL (0.60-1.10); TOTAL CARBON DIOXIDE 32.8 MMOL/L (24-32); eCRCL 93 ML/MIN; eGFR > 90 ML/MIN
[2025-05-10 10:00] VITALS: BP 129/51; PULSE 63; RESP 14; TEMP 97.4; O2SAT 90
[2025-05-10] MEDS ORDERED: magnesium sulf-water 2g/50mL 50 ML IV PRN (12:20)
[2025-05-10] MEDS ORDERED: magnesium Cl slow-release 64mg tablet PO PRN (12:20)
[2025-05-10] MEDS ORDERED: potassium Cl 20 mEq SR tablet PO PRN (12:20)
[2025-05-10] MEDS ORDERED: potassium Cl 40MEQ/1/2NS 520ml 520 ML IV PRN (12:20)
[2025-05-10] MEDS ORDERED: magnesium sulf-water 4G/100mL 100 ML IV PRN (12:20)
[2025-05-10] MEDS: potassium Cl 20 mEq SR tablet PO PRN (12:26)
--- NOTE | 2025-05-10 15:24 | RADIOLOGY REPORT ---
CLINICAL HISTORY: cva/ mental status change. TECHNIQUE: Routine multiplanar imaging of the brain was performed without gadolinium contrast. COMPARISON: CT CT HEAD on DOS: 05/07/25 FINDINGS: Evaluation is limited due to image degradation secondary to patient motion. There is no abnormal restricted diffusion to suggest acute infarction. There is mild brain volume loss. There are no significant chronic small vessel ischemic foci. There is no evidence for acute ischemic changes, mass, mass effect, or extra- axial fluid collection. There is no hydrocephalus or midline shift. The cerebral sulci and subarachnoid cisterns are not effaced. There are large left and small right mastoid effusions. The globes are intact. The midline structures, including the corpus callosum, are unremarkable. The intracranial flow voids are maintained. IMPRESSION: No acute intracranial abnormality seen. No evidence for acute infarct. Large left and small right mastoid effusions.
[2025-05-10 16:17] VITALS: PULSE 60; RESP 16; O2SAT 94
[2025-05-10 18:00] VITALS: BP 123/75; PULSE 60; RESP 18; TEMP 97.4; O2SAT 95
--- NOTE | 2025-05-10 18:11 | PROGRESS NOTE ---
Daily Progress Note Providers to CC ~ Antibiotic Timeout Antibiotic Ordered?: No Subjective Patient was seen today in presence of family members he was not confused answered all questions appropriately. Patient had MRI done which ruled out stroke. Patient is waiting for physical therapy evaluation. As per patient he has bad vision but not seen slot service specialist recently. Objective Vital Signs Date Time Temp Pulse Resp B/P (MAP) Pulse Ox O2 Delivery O2 Flow Rate FiO2 05/10/25 16:17 60 16 94 Room Air* 0 21 05/10/25 10:00 97.4 129/51 (77) MRI head- IMPRESSION: No acute intracranial abnormality seen. No evidence for acute infarct. Large left and small right mastoid effusions. Result Diagram: 05/10/25 0501 05/10/25 0501 General-patient not in any acute distress, alert awake chronically ill- appearing, looks comfortable HEENT-atraumatic normocephalic, neck supple without elevated JVD, no thyromegaly or carotid bruit. No lymphadenopathy bilaterally. Eyes-no icterus or pallor seen in eyes Chest-clear to auscultation bilaterally, breathing nonlabored no tachypnea, no wheezing, no crepitation, no crackles. Heart-S1-S2 normal, regular heart rate no murmur Abdomen bowel sounds positive on auscultation, soft nondistended nontender no guarding, no rigidity Skin no active skin rash Neurology-grossly intact, nonfocal alert awake , no focal neurological deficits Extremity- no pedal edema able to move all 4 extremities Psychiatry - patient is not confused or agitated cooperated during physical examination Coagulation Studies Laboratory Tests Test 05/08/25 17:29 D-Dimer 1.79 MG/L FEU (0-0.50) H D-Dimer Comment Problem\Assessment\Plan This is a 74-year-old male with a history of type 2 diabetes mellitus, hypertension, hypothyroidism, on 2 L of oxygen at home, possible stroke was brought to the ER by the EMS for increased confusion. The patient is being admitted for further evaluation of encephalopathy Encephalopathy Neurology consult completed, recommendation to be implemented MRI, of the head and electro encephalogram IV, pending Patient is febrile, WBC count, procalcitonin normal. COVID-19 negative Urine analysis negative for infection. Blood cultures negative Chest x-ray normal, Abdominal CT with IV contrast done in the ER look for infection, showed constipation. Head CT showed no acute intracranial abnormal Ammonia levels normal Monitored Neuro checks q.4. 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 Telemetry monitoring on aspirin and atorvastatin Normocytic Anemia Hemoglobin 10.1 We will monitor hemoglobin and hematocrit Chronic hypoxemic respiratory failure Possible ASHLEE Patient's uses CPAP at home, Iliac artery aneurysm Abdominal CT with IV contrast showed bilateral common iliac artery aneurysms, 2.3 cm on right, 1.8 cm on left Constipation On docusate 100 mg b.i.d. Hypertension Continued patient's home medication Cardizem 180 mg. Type 2 diabetes mellitus A1c ordered Started on low-dose insulin supplement protocol Hypothyroidism Continued patient's home medication levothyroxine History of gout Continued patient's home medication allopurinol. Hypokalemia-replacement of potassium as per protocol Code status: Full code DVT prophylaxis: Heparin Diet: Soft bite size chopped diet Patient's current condition is guarded needs physical therapy before discharge in AM Date of Service: May 10, 2025 Billing Provider: EUFEMIA ABBASI MD Common Visit Codes: [id number] INP/OBS CARE(HIGH) EUFEMIA ABBASI MD May 10, 2025 18:11
[2025-05-10] MEDS ORDERED: APIX5TAB3 PO (19:23)
[2025-05-10] MEDS ORDERED: FLUT16SP2 BOTHNARES (19:23)
[2025-05-10] MEDS: K and/or MAG REPLACEMENT MC SCH (20:00)
[2025-05-10 22:00] VITALS: BP 162/76; PULSE 60; RESP 15; TEMP 97.4; O2SAT 90
[2025-05-11] MEDS: HYDROcodone/acetaminophen 5mg/325mg tablet PO PRN (01:15)
[2025-05-11 05:51] LABS: MEAN PLATELET VOLUME 8.0 FL (7.4-10.4); RED CELL DISTRIBUTION WIDTH 18.0 % (11.5-14.5)
[2025-05-11 05:58] LABS: CREATININE 0.54 MG/DL (0.60-1.10); TOTAL CARBON DIOXIDE 32.0 MMOL/L (24-32); eCRCL 105 ML/MIN; eGFR > 90 ML/MIN
[2025-05-11 06:00] VITALS: BP 147/79; PULSE 59; RESP 16; TEMP 97.5; O2SAT 94
[2025-05-11 07:54] VITALS: PULSE 88; RESP 18; O2SAT 96
[2025-05-11 08:40] VITALS: RESP 18
[2025-05-11 08:45] VITALS: BP 92/49; PULSE 65
[2025-05-11 10:00] VITALS: BP 110/51; PULSE 61; RESP 14; TEMP 97.7; O2SAT 93
--- NOTE | 2025-05-11 19:34 | DISCHARGE SUMMARY ---
Discharge Summary Providers to CC ~ Discharge Summary Admission Diagnosis: ENCEPHALOPATHY Hospital Course DATE OF ADMISSION: May 07, 2025 DATE OF DISCHARGE:May 11, 2025 CBC testing done on May 11, 2025 WBC 5.1 hemoglobin 9.8 hematocrit 29.7 platelet count 325. Serum chemistry done on May 11, 2025 sodium 140 potassium 3.3 creatinine 0.54 GFR 90. Hemoglobin A1c 6.4, normal lipid panel and liver enzymes. MRI HEADMPRESSION: No acute intracranial abnormality seen. No evidence for acute infarct. Large left and small right mastoid effusions. CT HEADIMPRESSION: 1. No evidence of acute intracranial abnormality. CT ABDOMEN PELVISIMPRESSION: 1. No acute intra-abdominal or intrapelvic process. 2. Nonobstructive left renal calculus measuring 8 mm. 3. Bilateral common iliac artery aneurysms measuring up to 2.3 cm on the right and 1.8 cm on the left. 4. Constipation. CHEST,SINGLE VIEW-IMPRESSION: 1. No radiographic evidence of acute cardiopulmonary abnormality. Discharge Diagnosis\Comment: Metabolic Encephalopathy resolved , History of stroke, Normocytic Anemia, Chronic hypoxemic respiratory failure Possible ASHLEE, Constipation, Hypertension Type 2 diabetes mellitus, Hypothyroidism , History of gout mild Hypokalemia Operations\Procedures: None Consultants: Dr German Hadley, tele Neurology specialist blue harry Complications: None Condition on DC: Stable for transfer Discharge Summary: This is a 74-year-old male with a history of type 2 diabetes mellitus, hyp ertension, hypothyroidism, on 2 L of oxygen at home, possible stroke was brought to the ER by the EMS for increased confusion. The patient is being admitted for further evaluation of encephalopathy Encephalopathy- likely related to side effects of Polypharmacy meds . Neurology consult completed, recommendation to be implemented MRI, of the head and electro encephalogram IV, pending Patient is febrile, WBC count, procalcitonin normal. COVID-19 negative Urine analysis negative for infection. Blood cultures negative Chest x-ray normal, Abdominal CT with IV contrast done in the ER look for infection, showed constipation. Head CT showed no acute intracranial abnormal Ammonia levels normal Monitored Neuro checks q.4. 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 Telemetry monitoring on aspirin and atorvastatin Normocytic Anemia Hemoglobin 10.1 We will monitor hemoglobin and hematocrit Chronic hypoxemic respiratory failure Possible ASHLEE Patient's uses CPAP at home, Iliac artery aneurysm Abdominal CT with IV contrast showed bilateral common iliac artery aneurysms, 2.3 cm on right, 1.8 cm on left Constipation On docusate 100 mg b.i.d. Hypertension Continued patient's home medication Cardizem 180 mg. Type 2 diabetes mellitus A1c ordered Started on low-dose insulin supplement protocol Hypothyroidism Continued patient's home medication levothyroxine History of gout Continued patient's home medication allopurinol. Hypokalemia-replacement of potassium as per protocol Patient is feeling better he has been afebrile and getting discharged to rehab in stable condition. Medication reconciliation done for rehab facility. Patient is seen and examined on the day of discharge. Patient was seen today in presence of family members he was not confused answered all questions appropriately. Patient had MRI done which ruled out stroke. All labs, diagnostic workup and discharge plan discussed with patient and in detail before her discharge. All questions and queries answered to the best of my professional medical knowledge. I heard patient's concerns and address appropriately. Patient was not cleared by Physical therapy team for home discharge . client care manager involved in patient's discharge plan. Discharge instructions provided to the patient and . Patient we will likely need follow with ENT specialist in outpatient setting. It is also recommended to follow with the provider who did the biopsy of thyroid. Patient also we will get benefit in following with ophthalmology specialist for vision impairment. General-patient not in any acute distress, alert awake chronically ill- appearing, looks comfortable HEENT-atraumatic normocephalic, neck supple without elevated JVD, no thyromegaly or carotid bruit. No lymphadenopathy bilaterally. Eyes-no icterus or pallor seen in eyes Chest-clear to auscultation bilaterally, breathing nonlabored no tachypnea, no wheezing, no crepitation, no crackles. Heart-S1-S2 normal, regular heart rate no murmur Abdomen bowel sounds positive on auscultation, soft nondistended nontender no guarding, no rigidity Skin no active skin rash Neurology-grossly intact, nonfocal alert awake , no focal neurological deficits Extremity- no pedal edema able to move all 4 extremities Psychiatry - patient is not confused or agitated cooperated during physical examination *Problems/Diagnosis: (1) Change in level of consciousness Total Time Spent on D/C: > 30 Minutes Date of Service: May 11, 2025 Billing Provider: EUFEMIA ABBASI MD Common Visit Codes: 91925-CAP/OBS DISCH DAY >30min EUFEMIA ABBASI MD May 11, 2025 19:28
== END 2025-05-11 15:28 | DRG 71 ==
LOC: ER 23:45 → ED HOLD 05-07 05:17 → EDBEDREQ 05-07 05:39 → ORTHO 4S 05-07 07:40
PROVIDERS: ADMIT Internal Medicine Critical Care Medicine; ATTEND Family Medicine
PROC: BW211ZZ Computerized Tomography (CT Scan) of Abdomen and Pelvis using Low Osmolar Contrast (ICD-10-PCS; 2025-05-07)
PROC: 4A00X4Z Measurement of Central Nervous Electrical Activity, External Approach (ICD-10-PCS; principal; 2025-05-09)
DX: G93.41 Metabolic encephalopathy (principal); J96.11 Chronic respiratory failure with hypoxia; R47.01 Aphasia; I10 Essential (primary) hypertension; E78.00 Pure hypercholesterolemia, unspecified; E03.9 Hypothyroidism, unspecified; D64.9 Anemia, unspecified; Z20.822 Contact with and (suspected) exposure to COVID-19; E11.9 Type 2 diabetes mellitus without complications; G47.33 Obstructive sleep apnea (adult) (pediatric); E87.6 Hypokalemia; Z91.018 Allergy to other foods; Z91.0110 Allergy to milk products, unspecified; Z88.0 Allergy status to penicillin; Z79.899 Other long term (current) drug therapy
CPT/HCPCS: 36415; 70450; 70551; 71045; 74177; 80048; 80053; 80061; 81001; 82140; 82728; 82948; 83036; 83540; 83550; 83605; 83735; 83880; 84145; 85025; 85379; 87040; 87081; 87811; 92508; 92616; 94760; 95816; 96365; 96372; 97110; 97116; 97162; 97530; 99285; A4615; A6213; A6590; C1758; G0378; J0696; J1630; J1644; J1815; J3490; J7030; Q9967

== ENCOUNTER 2025-05-22 12:58 | Emergency (ER) | payer OTHER, MEDICARE ==
[~2025-05-22] VITALS: Ht 167.6 cm; Wt 88.0 kg
[~2025-05-22 12:58] MED LIST changes: +ALBU8HFA INH; +APIX5TAB3 PO; +CHOL125C7; +DILT-36 PO; +EMPA10TA; +FLUT16SP2 BOTHNARES; +GUAI400T92 PO; +IRBE150T51 PO; +LISI30TA4; +MELO-102 PO; +METF-504; +OMEP40CA21 PO; +POLY17PO10 PO; +SYN0.088T PO
[2025-05-22 13:25] LABS: MEAN PLATELET VOLUME 7.9 FL (7.4-10.4); RED CELL DISTRIBUTION WIDTH 19.8 % (11.5-14.5)
--- NOTE | 2025-05-22 13:32 | ELECTROCARDIOGRAPH REPORT ---
[facility] Test Date: 2025-05-22 Test Time: 13:10:49 Pat Name: MOSHE HELTON Department: EMERGENCY ROOM Room: Gender: M Beveler: MARITA : 1950 Requested By: REGINA ARRINGTON Order Number: [id number] Reading MD: Dr. SABRINA Marrero Measurements Intervals [place] Rate: 92 P: -10 AL: 166 QRS: -61 QRSD: 91 T: -58 QT: 360 QTc: 446 Interpretive Statements normal sinus rhythm with PACs Probable left atrial enlargement Inferior infarct, old Probable anterior infarct, age indeterminate Baseline wander in lead(s) II Electronically Signed On 05-25-2025 18:04:[address] SABRINA Marrero Please click the below link to view image of tracing.
[2025-05-22 13:36] LABS: CREATININE 0.71 MG/DL (0.60-1.10); TOTAL CARBON DIOXIDE 34.8 MMOL/L (24-32); eCRCL 80 ML/MIN; eGFR > 90 ML/MIN
--- NOTE | 2025-05-22 14:32 | RADIOLOGY REPORT ---
EXAM: CT CT HEAD INDICATION: headache TECHNIQUE: CT images of the head were obtained without administration of IV contrast. CT scans at this facility use dose modulation, iterative reconstruction, and/or weight based dosing when appropriate to reduce radiation dose to as low as reasonably achievable. COMPARISON: MR MRI HEAD on DOS: 05/10/25 FINDINGS: PARENCHYMA: No acute hemorrhage. There is no mass effect, midline shift, or herniation. There is preservation of the guo white differentiation. Mild scattered hypoattenuation along the periventricular, centrum semiovale, and deep white matter tracts, which are nonspecific however statistically most likely represent chronic microvascular ischemic change. VENTRICLES: No hydrocephalus. EXTRA-AXIAL SPACES: No extra-axial fluid collections. OTHER: The bony structures are intact. Fluid opacification near the entirety of the left posterior mastoid air IMPRESSION: 1. No CT evidence of an acute intracranial abnormality. 2. Fluid opacification of the left posterior mastoid air cells.
[2025-05-22] MEDS: normal saline 1000ml 1,000 ML IV ONE (14:58)
[2025-05-22 16:10] LABS: LEUKOCYTE ESTERASE ,URINE NEGATIVE (Neg); NITRITES, URINE NEGATIVE (Neg); OCCULT BLOOD,URINE NEGATIVE (Neg)
--- NOTE | 2025-05-22 16:12 | Physician Documentation ---
History of Present Illness ~ Chief Complaint: ALOC Stated Complaint: STROKE ALERT Time Seen by MD: 13:04 Primary Medical Doctor: MAGDA Mode of Arrival: EMS HPI BIB EMS from care facility for worsening speech slur and altered. Initially concern for stroke but EMS reports en route only speech slur and no lateralizing neuro signs. Patient following commands, denies pain, other symptoms. Medication Reconciliation Allergies: Coded Allergies: kiwi (Verified Allergy, Unknown, 05/22/25) latex (Unverified Allergy, Unknown, 05/22/25) milk (Verified Allergy, Unknown, 05/22/25) Uncoded Allergies: PENICILLIN (Allergy, Mild, RASH, 08/31/21) AVOCADOS (Allergy, Unknown, 05/07/25) WALNUTS (Allergy, Unknown, 05/07/25) Scheduled Allopurinol (Allopurinol), 1.5 TAB PO DAILY, (Reported) Alogliptin Benzoate (Nesina), 1 TAB PO DAILY, (Reported) Apixaban (Eliquis), 5 MG PO BID, (Reported) Ascorbic Acid (Ascorbic Acid), 1 TAB PO DAILY, (Reported) Atorvastatin Calcium (Atorvastatin Calcium), 1 TAB PO DAILY, (Reported) Diclofenac Sodium (Voltaren Arthritis Pain), 2 GM PO QID, (Reported) Diltiazem HCl (Diltiazem 24Hr Cd), 1 CAP PO DAILY, (Reported) Fluticasone Propionate (Flonase), 2 SPRAYS BOTHNARES DAILY, (Reported) Irbesartan* (Avapro*), 1 TAB PO DAILY, (Reported) Levothyroxine Sodium* (Synthroid*), 1 TAB PO DAILY, (Reported) Losartan Potassium (Losartan Potassium), 1 TAB PO DAILY, (Reported) Meloxicam (Meloxicam), 1 TAB PO DAILY, (Reported) Omeprazole (Prilosec), 1 CAP PO DAILY, (Reported) Pantoprazole Sodium (Pantoprazole Sodium), 1 TAB PO DAILY, (Reported) Polyethylene Glycol 3350* (Miralax*), 1 PKT PO DAILY, (Reported) Tamsulosin Hcl* (Flomax*), 1 CAP PO DAILY, (Reported) Scheduled PRN Hydrocodone Bit/Acetaminophen 5/325 MG ([place] 5/325 MG), 1 TABLET PO BID PRN for pain, (Reported) Ipratropium/Albuterol Sulfate (Duoneb 2.5-0.5 Mg/3 Ml Soln), 3 ML IH QID PRN for SOB or wheezing, (Reported) albuterol inhaler (Pro-Air Inhaler), 2 PUFFS INH Q4HPRN PRN for wheezing, (Reported) Miscellaneous Medications Cholecalciferol (Vitamin D3) (D3-5000), (Reported) Empagliflozin (Jardiance), (Reported) Guaifenesin (Guaifenesin), 400 MG PO, (Reported) Lisinopril (Lisinopril), (Reported) Metformin Hcl (Metformin Hcl Er), (Reported) Past Medical History Past Medical History: High Cholesterol, Hypertension, Diabetes, Chronic Back Pain Patient History: Patient reports no known family medical history. Alcohol Use: None Drug Use: none Lives with: Family Lives In: Home Review of Systems All Other Systems at this time: Reviewed and Negative Physical Exam Vital Signs: RN Vital Signs have been reviewed: Yes, Temperature: 98.2, Source: Oral, Heart Rate: 66, Respiratory Rate: 18, BP: 166/82, Pulse Oximetry: 98, Weight: 88.000 Oxygen Flow Rate: 0 Physical Exam Gen: no distress HEENT: NCAT, EOMI, PERRL, MMM Pulm: no distress CTAB Cardiac: deferred RRR no m/c/r Abdomen: soft, NT, ND MSK: no deformity; Neuro: nonfocal; partially-oriented Skin: w/d/i Psych: unremarkable Progress Results/Orders Results/Orders Orders - REGINA ARRINGTON MD Ct Head (05/22/25 13:48) Completed Orders - REGINA ARRINGTON MD Cbc/Diff (05/22/25 13:04) CMP (05/22/25 13:04) Stat Ekg (05/22/25 ) Acetaminophen 325mg Tablet (Tylenol Tabl (05/22/25 13:50) Ct Head (05/22/25 13:48) Normal Saline 1000ml (0.9% Sodium Chlori (05/22/25 14:55) Ua W/Microscopic, Cult If Ind (05/22/25 15:43) Medications Received in ER Medications (Trade) Dose Ordered Sig/Sarbjit Route PRN Reason Start Time Stop Time Status Last Admin Dose Admin (Tylenol tablet) 650 mg ONCE ONCE PO 05/22/25 13:50 05/22/25 13:51 DC 05/22/25 13:51 650 MG Sodium Chloride 1,000 ml @ 1,000 mls/hr ONCE ONCE IV 05/22/25 14:55 05/22/25 15:54 DC 05/22/25 14:58 1,000 MLS/HR Vital Signs 05/22/25 05/22/25 05/22/25 05/22/25 13:00 13:27 13:35 15:00 Temp 98.2 Pulse 84 83 64 Resp 20 16 16 B/P (MAP) 127/77 133/77 (95) 144/87 (106) Pulse Ox 89 96 98 O2 Flow Rate 0 2.0 2.0 05/22/25 05/22/25 05/22/25 05/22/25 15:45 16:26 16:45 17:00 Temp 98.2 Pulse 66 78 78 Resp 18 16 B/P (MAP) 166/82 (110) 146/92 (110) 140/92 (108) Pulse Ox 98 97 90 O2 Flow Rate 2.0 2.0 0 05/22/25 17:00 Pulse Ox 93 O2 Flow Rate 2.0 Laboratory Tests Test 05/22/25 13:15 05/22/25 15:43 White Blood Count 9.1 Red Blood Count 4.17 L Hemoglobin 11.8 L Hematocrit 36.7 L Mean Corpuscular Volume 88.0 Mean Corpuscular Hemoglobin 28.2 Mean Corpuscular Hemoglobin Concent 32.0 L Red Cell Distribution Width 19.8 H Platelet Count 376 Mean Platelet Volume 7.9 Neutrophils (%) (Auto) 76.2 H Lymphocytes (%) (Auto) 14.4 L Monocytes (%) (Auto) 6.6 Eosinophils (%) (Auto) 2.1 Basophils (%) (Auto) 0.7 Neutrophils # (Auto) 6.9 Lymphocytes # (Auto) 1.3 Monocytes # (Auto) 0.6 Eosinophils # (Auto) 0.2 Basophils # (Auto) 0.1 CBC Comment Sodium Level 139 Potassium Level 3.1 L Chloride Level 102 Carbon Dioxide Level 34.8 H Anion Gap 2 L Blood Urea Nitrogen 11 Creatinine 0.71 Estimated GFR/1.73 m2 > 90 BUN/Creatinine Ratio 15.5 Glucose Level 135 H Calcium Level 9.1 Total Bilirubin 0.8 Aspartate Amino Transf (AST/SGOT) 20 Alanine Aminotransferase (ALT/SGPT) < 6 L Alkaline Phosphatase 109 Total Protein 6.7 Albumin 2.2 L Globulin 4.5 H Albumin/Globulin Ratio 0.5 L Chemistry Comments Urine Specimen Description Urinal Urine Color Yellow Urine Clarity Clear Urine pH 6.5 Urine Specific Paron 1.010 Urine Protein Negative Urine Glucose (UA) >=1000 H Urine Ketones Negative Urine Occult Blood Negative Urine Nitrite Negative Urine Bilirubin Negative Urine Urobilinogen 0.2 Urine Leukocyte Esterase Negative Urine RBC 0-2 Urine WBC 0-4 Urine Squamous Epithelial Cells None seen Urine Bacteria None seen Urine Mucus None seen Urine Culture Indicated Not ind Volume Urine Centrifuged 10 ml Urine Comment EKG/XRAY/CT/US/VASC/MRI CT : Interpreted By: self CT: head Impression My interpretation of head CT = no mass/shift/bleed Medical Decision Making Additional information obtaine: N/A Findings 74 year old male with slured speech and reported AMS but no focal neuro deficits. Stroke alert canceled. Workup largely unremarkable. Spoke with family member at bedside who feels patient is at baseline and his speech slur is simply secondary to his missing dentures. Will discharge back to facility. Differential Dx:Considerations: Include: dehydration, Delirium Tr., DKA, encephalopathy, hypercalcemia, hypoglycemia, hypernatremia, subarachnoid hemorrhage, drug overdose, encephalopathy, ETOH intoxication, medication toxicity, infection - sepsis, infection - UTI, heart failure, renal failure, respiratory failure, hyperthermia Departure Disposition: 01 HOME / SELF CARE / HOMELESS Impression: Primary Impression: Slurred speech Condition: Stable Discharge Instructions: Altered Mental Status Referrals: NO PRIMARY CARE PROVIDER (PCP) Education Educated: Patient, Family Educated regarding: diagnosis, treatment, prognosis, need for follow up Signature Scribe Signature: . Attestation: . REGINA ARRINGTON MD May 22, 2025 16:12
[2025-05-22 16:14] LABS: UA COLLECTION TYPE URINAL
[2025-05-22 16:15] LABS: MUCUS STRANDS NONE SEEN /LPF (Neg); SQUAMOUS EPITHELIAL CELL,UR NONE SEEN /LPF (FEW)
[2025-05-22 16:26] VITALS: RESP 16
[2025-05-22 16:45] VITALS: BP 140/92; PULSE 78
[2025-05-22 17:00] VITALS: TEMP 98.2; O2SAT 93
== END 2025-05-22 17:02 | disposition home or self-care (01) ==
LOC: ER 12:59
DX: R47.81 Slurred speech (principal); E11.9 Type 2 diabetes mellitus without complications; E78.00 Pure hypercholesterolemia, unspecified; G89.29 Other chronic pain; I10 Essential (primary) hypertension; Z91.040 Latex allergy status; Z91.0110 Allergy to milk products, unspecified; Z79.899 Other long term (current) drug therapy
CPT/HCPCS: 36415; 70450; 80053; 81001; 85025; 93005; 96360; 99285; J7030